=== PATIENT | female | born 2000 | race Caucasian/White ===

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

== ENCOUNTER 2019-02-04 21:44 | Emergency (ER) | payer BC ==
--- OUTSIDE RECORDS SUMMARY | 2019-02-04 21:48 | XMS REPORT | Continuity of Care Document ---
:2000 External Reference #:[id number] Author Name Shira Motley Address [address] [place] [address] Care Team Providers Name Role Phone Lina Santoro M.D. - Family Medicine Care Team Information [employer] Unavailable Problems Description No Information Available Social History Type Date Description Comments Sex Unknown Tobacco Use Start: Unknown Occasionally Smokes once a month Cigarettes ETOH Use Social Alcohol once weekly, a couple drinks Recreational Drug Use Sporadically uses a couple times per Marijuana week Tobacco Use Start: Unknown Patient is a current rare once a month smoker, smokes some days Smoking Status Reviewed: 12/07/18 Patient is a current rare once a month smoker, smokes some days Exercise Type/Frequency Exercises regularly stretching, yoga, walks Guns in Home No Smoke Alarms Yes Smoke Alarms Carbon Monoxide Detector: Yes Allergies, Adverse Reactions, Alerts Description No Known Drug Allergies Medications Active Medications SIG Qnty Indications Ordering Provider Date Sertraline HCL 1.5 by mouth 135tabs F32.1 Candi Vidales 04/08/2018 50mg every day JIM Blanco Tablets Physical Therapy please diagnose M54.5 Candi Vidales 04/08/2018 and treat for JIM Blanco lower back pain Nexplanon 2016 Unknown 68mg Implant Cryselle-28 1 by mouth every Unknown day 0.3-30mg-mcg Tablets Immunizations CPT Code Status Date Vaccine Lot # [id number] Given 04/29/2018 Meningococcal Conjugate Vaccine,Serogroups For [id number] Intramuscular Use 41597 Given 04/29/2018 Tdap Tetanus, W Pertussis [id number] 74891 Given 02/15/2018 Influenza Vac, [place] [address] Given 12/31/2016 Influenza Vac, [place] [address] Given 06/02/2016 Influenza Vac, [place] [address] Given 01/22/2013 Influenza Vac, [place], [place] [address] Given 07/11/2010 Gardasil vacine typs 6,11,16,18 3 dose schedule 85987 Given 02/06/2010 Gardasil vacine typs 6,11,16,18 3 dose schedule 53179 Given 11/29/2009 Gardasil vacine typs 6,11,16,18 3 dose schedule 09021 Given 11/29/2009 Meningococcal Conjugate Vaccine,Serogroups For Intramuscular Use 63847 Given 11/16/2008 Tdap Tetanus, W Pertussis 82178 Given 11/07/2007 Hep A Ped 2-Dose Immunization 22167 Given 02/24/2007 Influenza vac quadrivalent preservative free 3yrs and up 24007 Given 11/22/2006 Hep A Ped 2-Dose Immunization 54992 Given 02/04/2006 Influenza vac quadrivalent preservative free 3yrs and up 33130 Given 01/07/2005 Influenza vac quadrivalent preservative free 3yrs and up 94186 Given 04/11/2003 Influenza vac quadrivalent preservative free 3yrs and up 17240 Given 03/07/2003 Influenza vac quadrivalent preservative free 3yrs and up 30446 Given 09/06/2002 DTaP Immunization 87303 Given 09/06/2002 MMR Virus Immunization 90641 Given 09/06/2002 (IPV) Inactive Poliovirus Vaccine 61394 Given 02/08/2000 (IPV) Inactive Poliovirus Vaccine 92461 Given 12/22/1999 MMR Virus Immunization 04395 Given 12/22/1999 DTaP Immunization 16642 Given 12/22/1999 Pneumococcal Conjugate Vacc-13 54193 Given 09/19/1999 Pneumococcal Conjugate Vacc-13 57737 Given 07/09/1999 Hepatitis B Immunization, Enterprise-19 Years 07993 Given 07/09/1999 (IPV) Inactive Poliovirus Vaccine 51212 Given 07/09/1999 Hib PRP-T Conjugate 4 Dose Schedule 31067 Given 03/04/1999 Hib PRP-T Conjugate 4 Dose Schedule 75186 Given 03/04/1999 DTaP Immunization 40951 Given 1998 Hepatitis B Immunization, -19 Years 71211 Given 1998 (IPV) Inactive Poliovirus Vaccine 61282 Given 1998 DTaP Immunization 15349 Given 1998 Hib PRP-T Conjugate 4 Dose Schedule 62871 Given 1998 Hepatitis B Immunization, -19 Years 95622 Given 1998 (IPV) Inactive Poliovirus Vaccine 81270 Given 1998 DTaP Immunization 30475 Given 1998 Hib PRP-T Conjugate 4 Dose Schedule Vital Signs Date Vital Result Comment 12/07/2018 4:27pm BP Systolic 110 mmHg BP Diastolic 68 mmHg Heart Rate 78 /min Body Temperature 97.7 F Respiratory Rate 16 /min Weight 176.00 lb 11/19/2018 10:04am BP Systolic 98 mmHg BP Diastolic 56 mmHg Heart Rate 90 /min Body Temperature 98.4 F Respiratory Rate 17 /min Weight 174.00 lb Results Test Date Facility Test Result H/L Range Note CBC Electronic (Fma New) 11/19/2018 [facility] Medicine WBC 6.32 4.0-10.0 (607)- - RBC 4.58 3.93-6.0 Hemoglobin (Fma/CMC/CTX) 13.8 g/dL 12.0-17.0 Hematocrit (Fma/CMC/CTX) 40.3 % 35.0-50.0 Mean Corpuscular Vol 88.0 fL 80-95 Mean Corpuscular Hemoglobin 30.1 pg 25.6-32.2 Mean Corpuscular Hemo Concen 34.2 g/dL 32.2-36.0 Platelets 269 10^3/ul 163-400 RDW-CV 12.6 11.6-14.4 Mean Platelet Volume 9.4 fL 8.0-12.4 Absolute Neutrophils BLD 4.03 1.56-6.13 Absolute Lymphocytes 1.67 1.18-3.74 Absolute Monocytes BLD Auto 0.49 0.24-0.82 Absolute Eos Blood 0.08 0.04-0.54 Absolute Basophils 0.04 0.01-0.08 Neutrophil % 63.7 % 34.0-70.0 Lymph% 26.4 % 20.0-52.0 Monocytes % 7.8 % 5.0-12.0 Eos % 1.3 % 0.7-7.0 Basophil% 0.6 % 0-1.2 Basic Metabolic Profile 11/19/2018 [facility]) Sodium 138 mEq/L 134-149 Potassium 4.3 mEq/L 3.6-5.5 Chloride 106 mEq/L 94-112 Carbon Dioxide 23 mEq/L 21-32 Glucose 107 mg/dL High 70-105 BUN 7 mg/dL 6-26 Creatinine 0.8 mg/dL 0.6-1.4 BUN/Creat Ratio 8.8 CALC 8.0-36.0 Calcium 9.5 mg/dL 8.6-10.2 GFR Non- >60 ml/min/1.73m^ >=60 GFR >60 ml/min/1.73m^ >=60 Laboratory test finding 11/19/2018 [facility](a) Ferritin 19 ng/mL 6-115 TSH 1.39 mIU/L 0.50-6.00 Ua - Non Micro (Fma) 07/21/2018 [facility] Appearance Clear (607)- - Color Yellow Glucose, Urine (Fma/CMC/CTX) Negative Bilirubin Negative Ketones Negative SP Grav 1.020 Blood Trace -Dip PH 8.5 Protein Negtaive Urobil 0.2 Nitrite Negative Leukocytes (Fma/CMC/Centrex) Negative Procedures Description No Information Available Medical Devices Description No Information Available Encounters Type Date Location Provider Dx Diagnosis Office Visit 11/19/2018 10:00a Main Office Candi Blanco NP R53.83 Other fatigue N92.0 Excessive and frequent menstruation with regular cycle Office Visit 07/21/2018 1:30p Main Office Candi Vidales R31.9 Hematuria, JIM Blanco unspecified M54.5 Low back pain Z82.71 Family history of polycystic kidney Assessments Date Code Description Provider 12/07/2018 R63.8 Other symptoms and signs concerning food Shira Motley and fluid intake 11/19/2018 R53.83 Other fatigue Candi Blanco NP 11/19/2018 N92.0 Excessive and frequent menstruation with Candi Blanco NP regular cycle 07/21/2018 R31.9 Hematuria, unspecified Candi Blanco NP 07/21/2018 M54.5 Low back pain Candi Blanco NP 07/21/2018 Z82.71 Family history of polycystic kidney Candi Blanco NP Plan of Treatment 12/07/2018 - Milton Motley-CR63.8 Other symptoms and signs concerning food and fluid intakeAllComments:Medication Management Patient Understands medications she's taking? Yes No Are there Barriers to Adherence? Yes No Has the patient been asked about herbal supplements and therapies, and OTC meds? Yes No Care Plan1. Patient has been queried about patient's goals/preferences and functional/lifestyle goals at relevant visits. If relevant, describe: na2. Treatment goals as explained to the patient: abovesx improvement 3. Are there barriers to meeting treatment goals? Yes No If Yes, please describe:4. Self-Management goals as described to the patient: Yes No read labels and try to avoid wheat over the next 1 month and reassess symptoms f/u if no better orsx persist / worsen sched with pp for implanon removal Functional Status Description No Information Available Mental Status Description No Information Available Referrals Refer to Reason for Referral Status Appt Date [facility] Consult and treat. Office note and demographics Created 2018 faxed. [phone] [place] [address] [phone]
[2019-02-04 21:53] VITALS: BP 138/70
[2019-02-04] MEDS ORDERED: Lidocaine 2% VISCOUS* 15 ML UDC PO ONE (22:01)
--- NOTE | 2019-02-04 22:01 | UC ---
Cardiac HPI - HPI Summary HPI Summary: 18 yo female with burning chest pain when swallowing onset 3 AM no n/v/d no abd pain no SOB - History of Current Complaint Chief Complaint: UCGeneralIllness Stated Complaint: SOB Time Seen by Provider: 02/04/19 21:54 Hx Obtained From: Patient Hx Last Menstrual Period: 01/17/19 Onset/Duration: Gradual Onset, Lasting Hours Timing: Constant Initial Severity: Mild Current Severity: Mild Pain Intensity: 3 Chest Pain Location: Mid Sternal Character: Burning Aggravating Factor(s): Other - taking PO Alleviating Factor(s): Nothing Associated Signs & Symptoms: Positive: Chest Pain Related History: Similar Episode/Dx as - esophagitis - Allergy/Home Medications Allergies/Adverse Reactions: Allergies Allergy/AdvReac Type Severity Reaction Status Date / Time No Known Allergies Allergy Verified 02/04/19 21:53 Home Medications: Home Medications Ferrous Gluconate 75 mg PO TID 02/04/19 [History Confirmed 02/04/19] Sertraline* [Zoloft*] 50 mg PO DAILY 02/04/19 [History Confirmed 02/04/19] PMH/Surg Hx/FS Hx/Imm Hx Previously Healthy: Yes - Surgical History Surgical History: None - Family History Known Family History: Positive: Cardiac Disease, Diabetes - Social History Alcohol Use: Occasionally Substance Use Type: Marijuana Substance Use Comment - Amount & Last Used: occasionally Smoking Status (MU): Current Some Day Smoker Type: Cigarettes Length of Time of Smoking/Using Tobacco: 1 YR Have You Smoked in the Last Year: Yes - Immunization History Most Recent Influenza Vaccination: none Vaccination Up to Date: Yes Review of Systems All Other Systems Reviewed And Are Negative: Yes Constitutional: Positive: Negative Skin: Positive: Negative Eyes: Positive: Negative ENT: Positive: Negative Respiratory: Positive: Negative Cardiovascular: Positive: Chest Pain Gastrointestinal: Positive: Negative Genitourinary: Positive: Negative Motor: Positive: Negative Neurovascular: Positive: Negative Musculoskeletal: Positive: Negative Neurological: Positive: Negative Psychological: Positive: Negative Physical Exam Triage Information Reviewed: Yes Appearance: Well-Appearing, No Pain Distress, Well-Nourished Vital Signs: Initial Vital Signs Temp 98 F 02/04/19 21:47 Pulse 94 02/04/19 21:47 Resp 16 02/04/19 21:47 BP 138/70 02/04/19 21:47 Pulse Ox 99 02/04/19 21:47 Vital Signs Reviewed: Yes Eyes: Positive: Conjunctiva Clear ENT: Positive: Hearing grossly normal. Negative: Nasal congestion, Nasal drainage, Trismus, Muffled voice, Hoarse voice Neck: Positive: Supple, Nontender, No Lymphadenopathy Respiratory: Positive: Chest non-tender, Lungs clear, Normal breath sounds, No respiratory distress Cardiovascular: Positive: RRR, No Murmur Abdomen Description: Positive: Nontender, No Organomegaly, Soft. Negative: CVA Tenderness (R), CVA Tenderness (L) Bowel Sounds: Positive: Present Musculoskeletal: Positive: Strength Intact, No Edema Neurological: Positive: Alert Psychological Exam: Normal Skin Exam: Normal - Clinical Impression Provider Diagnosis: Esophagitis Discharge ED - Sign-Out/Discharge Documenting (check all that apply): Patient Departure All imaging exams completed and their final reports reviewed: No Studies - Discharge Plan Condition: Stable Disposition: HOME Prescriptions: Omeprazole CAP (NF) [Prilosec CAP* 20 MG] 20 mg PO BEDTIME #14 cap. Patient Education Materials: Esophagitis (ED) Referrals: Lina Santoro MD [Primary Care Provider] - 6 Days Additional Instructions: i suggest you : decrease or stop smoking hold of on using any advil for aleve for now avoid alcohol try to avoid caffiene GET SOME MYLANTA take two tablespoons (30 cc) every 2 hours while awake for 2-3 days recheck oin 5-10 days if not improved sooner for new or worsening symptoms - Billing Disposition and Condition Condition: STABLE Disposition: Home
[2019-02-04] MEDS ORDERED: Al Hydrox/Mg Hydrox/Simet LIQ* 30 ML UDC PO ONE (22:02)
== END 2019-02-04 22:17 | disposition home or self-care (01) ==
LOC: UCEAST 21:44
DX: K20.9 Esophagitis, unspecified (principal); R07.9 Chest pain, unspecified; R06.02 Shortness of breath; F17.210 Nicotine dependence, cigarettes, uncomplicated
CPT/HCPCS: 99212; A9270-GY; G0463